=== PATIENT | female | born 1965 | race Caucasian/White ===

== ENCOUNTER 2020-10-07 09:28 | Emergency (ER) | payer BC ==
[~2020-10-07] VITALS: Ht 167.6 cm; Wt 111.0 kg
--- NOTE | 2020-10-07 10:07 | PHYS DOC ---
Past History Past Medical History: Diabetes Past Surgical History: Appendectomy, Cholecystectomy Alcohol Use: None General Adult EDM: Chief Complaint: CHEST PAIN HPI: HPI: Patient is a 55-year-old female coming in for substernal chest pain that radiated to her throat starting about an hour and a half prior to arrival. Patient states the pain subdued and is completely gone on her drive over here. 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 Has had one episode in the past but was not evaluated at that time. Was treated for pneumonia 2 weeks ago with antibiotics by her primary care provider. Patient has a chronic cough and smokes 2 packs of cigarettes daily. Has baseline lower extremity edema is unchanged. States she otherwise has been well and feels fine right now. Has a history of prediabetes. Family history of OR in father. Denies any known history of GERD but thinks she has some acid reflux. Review of Systems: Review of Systems: All other systems within normal limits except for as noted in the HPI Allergies: Allergies: Allergies Coded Allergies Type Severity Reaction Last Updated Verified No Known Drug Allergies 10/07/20 No Physical Exam: PE: Constitutional: Well developed, well nourished, no acute distress, non-toxic appearance, obese. [] HENT: Normocephalic, atraumatic, bilateral external ears normal, nose normal. [] Eyes: PERRLA, conjunctiva normal, no discharge. [] Neck: No rigidity, supple, no stridor. [] Cardiovascular: Regular rate and rhythm, brisk cap refill. No murmurs or gallops [] Lungs & Thorax: Non labored symmetric respirations, no tachypnea or respiratory distress, bilateral diminished, chest pain not reproducible by palpation [] Abdomen: Soft, nondistended, no tenderness. Skin: Warm, dry, no erythema, no rash. [] Back: Unremarkable Extremities: No deformities, range of motion grossly intact, no lower extremity edema [] Neurologic: Alert and oriented X 3, no focal deficits noted. [] Psychologic: Affect normal, judgement normal, mood normal. [] Current Patient Data: Vital Signs: Vital Signs Date Time Temp Pulse Resp B/P (MAP) Pulse Ox O2 Delivery O2 Flow Rate FiO2 10/07/20 09:36 98.4 96 18 121/54 (76) 94 Room Air EKG: EKG: Normal sinus rhythm, heart rate 88 bpm, normal axis, no ST elevation or dep ression, 1 PAC, normal intervals otherwise [] Radiology/Procedures: Radiology/Procedures: Chest, PA and Lateral: Technique: PA and lateral views of the chest were obtained. History: Chest pain. Comparison: None. Findings/ impression: Mild cardiomegaly. Mild prominent bilateral interstitial lung markings likely mild congestive changes or interstitial infiltrates.[] Heart Score: C/O Chest Pain: Yes HEART Score for Chest Pain: HEART Score for Chest Pain Response (Comments) Value History Slighlty/Non-Suspicious 0 ECG Normal 0 Age >45 - < 65 1 Risk Factors >3 Risk Factors or Hx CAD 2 Troponin < Normal Limit 0 Total 3 Risk Factors: Risk Factors: DM, Current or recent (<one month) smoker, HTN, HLP, family history of CAD, obesity. Risk Scores: Score 0 - 3: 2.5% MACE over next 6 weeks - Discharge Home Score 4 - 6: 20.3% MACE over next 6 weeks - Admit for Clinical Observation Score 7 - 10: 72.7% MACE over next 6 weeks - Early Invasive Strategies Course & Med Decision Making: Course & Med Decision Making Pertinent Labs and Imaging studies reviewed. (See chart for details) Work-up unremarkable and history not suspicious. Discussed return precautions and follow-up with her primary care provider. She already is having arrangements made for follow-up with cardiology [] Becka Disclaimer: Becka Disclaimer: This electronic medical record was generated, in whole or in part, using a voice recognition dictation system. Departure Departure: Impression: Primary Impression: Chest pain Disposition: 01 DC HOME SELF CARE/HOMELESS Condition: STABLE Referrals: NON,STAFF (PCP) BRENDAN WADDELL MD Patient Instructions: Chest Pain (Nonspecific) BRADY ARAUZ MD Oct 07, 2020 10:07
--- NOTE | 2020-10-07 12:02 | RAD ---
Chest, PA and Lateral: Technique: PA and lateral views of the chest were obtained. History: Chest pain. Comparison: None. Findings/ impression: Mild cardiomegaly. Mild prominent bilateral interstitial lung markings likely mild congestive changes or interstitial infiltrates. Electronically signed by: Himanshu Jose MD (10/07/2020 11:59 AM) [id number]
[2020-10-07 12:04] LABS: BASO # 0.1 x10^3/uL (0.0-0.2); BASO % 1 % (0-3); EOS # 0.4 x10^3/uL (0.0-0.7); EOS % 3 % (0-3); HEMATOCRIT 45.7 % (36.0-47.0); HEMOGLOBIN 14.9 g/dL (12.0-15.5); LYMPH # 3.2 x10^3/uL (1.0-4.8); LYMPH % 29 % (24-48); MEAN CORPUSCULAR HEMOGLOBIN 29 pg (25-35); MEAN CORPUSCULAR HGB CONC 33 g/dL (31-37); MEAN CORPUSCULAR VOLUME 88 fL (79-100); MONO # 0.8 x10^3/uL (0.0-1.1); MONO % 7 % (0-9); NEUT # 6.7 x10^3uL (1.8-7.7); NEUT % 60 % (31-73); PLATELET COUNT 230 x10^3/uL (140-400); RED BLOOD COUNT 5.18 x10^6/uL (3.50-5.40); RED CELL DISTRIBUTION WIDTH 14.4 % (11.5-14.5); WHITE BLOOD COUNT 11.1 x10^3/uL (4.0-11.0)
[2020-10-07 12:14] LABS: CREATININE 0.7 mg/dL (0.6-1.0); GFR 86.6; POTASSIUM 3.8 mmol/L (3.5-5.1)
--- NOTE | 2020-10-07 12:25 | EKG ---
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
[2020-10-07 12:28] LABS: ALBUMIN 3.4 g/dL (3.4-5.0); ALBUMIN/GLOBULIN RATIO 0.9 (1.0-1.7); TOTAL BILIRUBIN 0.3 mg/dL (0.2-1.0); TOTAL PROTEIN 7.4 g/dL (6.4-8.2)
[2020-10-07 13:10] VITALS: BP 120/46
== END 2020-10-07 13:12 | disposition home or self-care (01) ==
LOC: ER 09:28
DX: R07.2 Precordial pain (principal); R05 Cough; R60.0 Localized edema; E11.9 Type 2 diabetes mellitus without complications; F17.210 Nicotine dependence, cigarettes, uncomplicated
CPT/HCPCS: 36415; 71046; 80053; 83690; 83880; 84484; 85025; 93005; 99285

== ENCOUNTER → 2020-12-19 | Outpatient (CLI) | payer BC ==
[~2020-12-19] MED LIST: IOHEXOL 240 MG/ML 50ML VIAL. ONE
[2020-12-19 12:01] LABS: POTASSIUM ISTAT 3.2 mmol/L (3.5-5.0)
[2020-12-19 12:02] LABS: HEMOGLOBIN ISTAT 13.9 gm/dL
[2020-12-19] MEDS: IOHEXOL 300 MG/ML 75 ML VIAL. IV ONE (12:07)
--- NOTE | 2020-12-19 13:08 | RAD ---
EXAM: Abdomen and pelvis CT with intravenous contrast. HISTORY: Pain. TECHNIQUE: Computed tomographic images of the abdomen and pelvis were obtained following the administ ration of intravenous contrast. Multiplanar reformatting was performed. *One or more of the following individualized dose reduction techniques were utilized for this examina tion: 1. Automated exposure control. 2. Adjustment of the mA and/or kV according to patient size. 3. Use of iterative reconstruction technique. COMPARISON: None. FINDINGS: Evaluation of the lower thorax demonstrates no infiltrate or pleural effusion. The heart is normal in size. There is hepatomegaly and hepatic steatosis. The gallbladder is absent. The pancreas , spleen, adrenal glands and kidneys are unremarkable. The appendix is absent. There is sigmoid diverticulosis. There is no diverticulitis. The uterus and a dnexal regions are unremarkable. The bladder is unremarkable. The aorta is normal in caliber. There i s no lymphadenopathy. There is a lobulated fat-containing umbilical hernia. The hernia defect measures 4.6 cm. The hernia s ac measures 8.8 cm. No herniated loops of bowel is seen. There is no suspicious osseous lesion. There are few benign bone islands. IMPRESSION: 1. Sigmoid diverticulosis. 2. Hepatomegaly and hepatic steatosis. 3. Fat-containing lobulated umbilical hernia measuring 8.8 cm in maximum dimension. Electronically signed by: Helga Clarke MD (12/19/2020 1:05 PM) [id number]
== END ==
LOC: CT 10:16
PROVIDERS: ATTEND Internal Medicine Gastroenterology
DX: K57.30 Diverticulosis of large intestine without perforation or abscess without bleeding (principal); R16.0 Hepatomegaly, not elsewhere classified; K76.0 Fatty (change of) liver, not elsewhere classified; K42.9 Umbilical hernia without obstruction or gangrene
CPT/HCPCS: 36415; 74177; 80047; Q9967

== ENCOUNTER → 2020-12-25 | Outpatient (CLI) | payer BC ==
[2020-12-25 17:27] LABS: BASO # 0.1 x10^3/uL (0.0-0.2); BASO % 1 % (0-3); CALCIUM 8.9 mg/dL (8.5-10.1); CREATININE 0.7 mg/dL (0.6-1.0); EOS # 0.3 x10^3/uL (0.0-0.7); EOS % 4 % (0-3); GFR 86.6; HEMATOCRIT 40.5 % (36.0-47.0); HEMOGLOBIN 13.6 g/dL (12.0-15.5); LYMPH # 2.7 x10^3/uL (1.0-4.8); LYMPH % 28 % (24-48); MEAN CORPUSCULAR HEMOGLOBIN 30 pg (25-35); MEAN CORPUSCULAR HGB CONC 34 g/dL (31-37); MEAN CORPUSCULAR VOLUME 88 fL (79-100); MONO # 0.7 x10^3/uL (0.0-1.1); MONO % 8 % (0-9); NEUT # 5.6 x10^3uL (1.8-7.7); NEUT % 60 % (31-73); PLATELET COUNT 194 x10^3/uL (140-400); POTASSIUM 3.5 mmol/L (3.5-5.1); RED BLOOD COUNT 4.58 x10^6/uL (3.50-5.40); RED CELL DISTRIBUTION WIDTH 13.7 % (11.5-14.5); WHITE BLOOD COUNT 9.4 x10^3/uL (4.0-11.0)
[2020-12-25 17:29] LABS: C REACTIVE PROTEIN 18.5 mg/L (0-3.3)
[2020-12-25 18:38] LABS: SEDIMENTATION RATE 23 (0-25)
== END ==
LOC: LAB 16:19
PROVIDERS: ATTEND Family Medicine
DX: C76.0 Malignant neoplasm of head, face and neck (principal); M79.89 Other specified soft tissue disorders
CPT/HCPCS: 36415; 80048; 85025; 85651; 86140

== ENCOUNTER → 2020-12-31 | Outpatient (CLI) | payer BC ==
[~2020-12-31] MED LIST changes: -IOHEXOL 240 MG/ML 50ML VIAL. ONE; +IOHEXOL 300 MG/ML 75 ML VIAL. IV ONE
--- NOTE | 2020-12-31 13:52 | RAD ---
CT NECK SOFT TISSUE WITH IV CONTRAST History:Reason: SWELLING TO RIGHT LOWER JAW, POSSIBLE MASS / Technique: CT imaging was performed of the neck soft tissues with intravenous contrast. Coronal and s agittal reconstructions were performed. Exposure: One or more of the following individualized dose reduction techniques were utilized for thi s examination: 1. Automated exposure control 2. Adjustment of the mA and/or kV according to patient size 3. Use of iterative reconstruction technique. Comparison: None Findings: Solid right parotid gland heterogeneous nodule measures 3.2 x 2.4 cm. Additional right parotid smalle r adjacent nodule measures 1.6 x 1.1 cm. Additional inferior right parotid nodule solid with small cy stic component measures 3.6 x 2.6 cm. The left parotid gland appears normal. Symmetric normal appeara nce of the bilateral submandibular glands. No ductal dilatation. Unremarkable thyroid gland. Multiple small bilateral deep cervical chain lymph nodes. No pathologic lymphadenopathy. Imaged lung apices are unremarkable. Imaged paranasal sinuses and mastoid air cells are clear. Imaged orbits and intracranial contents are unremarkable. Impression: 1. Right parotid masses. Differential considerations include benign salivary gland tumor such as ple omorphic adenoma or Warthin's gland tumor although malignancy is possible. Recommend biopsy to furthe r assess. Electronically signed by: Dipak Galo DO (12/31/2020 1:49 PM) [id number]
== END ==
LOC: CT 10:52
PROVIDERS: ATTEND Family Medicine
DX: C76.0 Malignant neoplasm of head, face and neck (principal)
CPT/HCPCS: 70491; Q9967

== ENCOUNTER 2021-07-24 11:50 | Emergency (ER) | payer BC ==
[~2021-07-24] VITALS: Ht 167.6 cm; Wt 111.0 kg
[2021-07-24] MEDS ORDERED: DOXY100C3 PO (13:51)
[2021-07-24] MEDS ORDERED: PRED50TA PO (13:51)
--- NOTE | 2021-07-24 13:51 | PHYS DOC ---
Past History Past Medical History: Diabetes Past Surgical History: Appendectomy, Cholecystectomy Alcohol Use: None General Adult EDM: Chief Complaint: CHEST PAIN HPI: HPI: Patient is a 56-year-old female coming in for left-sided chest and back pain. Patient states she has had a cough of yellow phlegm. States that symptoms started today. Has a history of pneumonia about once a year. Smokes about 1.5 cigarettes/day but has not been diagnosed with COPD. Has had her Covid vaccines and influenza vaccine Review of Systems: Review of Systems: All other systems within normal limits except for as noted in the HPI Allergies: Allergies: Allergies Coded Allergies Type Severity Reaction Last Updated Verified No Known Drug Allergies 10/07/20 No Physical Exam: PE: Constitutional: Well developed, well nourished, no acute distress, non-toxic appearance. [] HENT: Normocephalic, atraumatic, bilateral external ears normal, nose normal. [] Eyes: PERRLA, conjunctiva normal, no discharge. [] Neck: No rigidity, supple, no stridor. [] Cardiovascular: Regular rate and rhythm, brisk cap refill [] Lungs & Thorax: Non labored symmetric respirations, no tachypnea or respiratory distress [] Abdomen: Soft, nondistended. Skin: Warm, dry, no erythema, no rash. [] Back: Unremarkable Extremities: No deformities, range of motion grossly intact, no lower extremity edema [] Neurologic: Alert and oriented X 3, no focal deficits noted. [] Psychologic: Affect normal, judgement normal, mood normal. [] Current Patient Data: Vital Signs: Vital Signs Date Time Temp Pulse Resp B/P (MAP) Pulse Ox O2 Delivery O2 Flow Rate FiO2 07/24/21 11:55 98.2 96 18 124/72 (89) 98 Room Air EKG: EKG: [] Radiology/Procedures: Radiology/Procedures: [] Heart Score: C/O Chest Pain: N/A Risk Factors: Risk Factors: DM, Current or recent (<one month) smoker, HTN, HLP, family history of CAD, obesity. Risk Scores: Score 0 - 3: 2.5% MACE over next 6 weeks - Discharge Home Score 4 - 6: 20.3% MACE over next 6 weeks - Admit for Clinical Observation Score 7 - 10: 72.7% MACE over next 6 weeks - Early Invasive Strategies Course & Med Decision Making: Course & Med Decision Making Pertinent Labs and Imaging studies reviewed. (See chart for details) [] Dragon Disclaimer: Dragon Disclaimer: This electronic medical record was generated, in whole or in part, using a voice recognition dictation system. Departure Departure: Impression: Primary Impression: Pneumonia Disposition: HOME / SELF CARE / HOMELESS Condition: STABLE Referrals: BRENDAN WADDELL MD (PCP) Patient Instructions: Pneumonia, Adult Scripts Prednisone (PREDNISONE) 50 Mg Tablet 1 TAB PO DAILY for steroid for 5 Days, #5 TAB Prov: BRADY ARAUZ MD 07/24/21 Doxycycline Hyclate (DOXYCYCLINE HYCLATE) 100 Mg Capsule 1 CAP PO BID for antibiotic for 7 Days, #14 CAP Prov: BRADY ARAUZ MD 07/24/21 BRADY ARAUZ MD Jul 24, 2021 13:51
[2021-07-24 14:20] VITALS: BP 115/72
--- NOTE | 2021-07-24 15:31 | RAD ---
XR CHEST 2V History: Reason: LEFT SIDED CHEST PAIN / Spl. Instructions: / History: Comparison: Two-view chest October 07, 2020. Findings: The cardiomediastinal silhouette is normal. Pulmonary vasculature is normal. There is minimal left lo wer lobe airspace disease. No pleural effusion or pneumothorax is seen. There is no acute bone abnorm ality. Degenerative endplate spurring of the thoracic spine. IMPRESSION: Minimal left lower lobe airspace disease may be atelectasis or early pneumonia. Electronically signed by: Jay Edward MD (07/24/2021 3:29 PM) [id number]
== END 2021-07-24 14:31 | disposition home or self-care (01) ==
LOC: ER 11:50
DX: J18.9 Pneumonia, unspecified organism (principal); E11.9 Type 2 diabetes mellitus without complications; Z90.49 Acquired absence of other specified parts of digestive tract
CPT/HCPCS: 71046; 99283-25